=== PATIENT | female | born 1955 | race Caucasian/White ===

== ENCOUNTER 2016-12-01 07:35 | Day surgery (SDC) | payer BC ==
[2016-12-01] MEDS ORDERED: Lactated Ringers 1,000 ML IV SCH (08:00)
[2016-12-01] MEDS ORDERED: fentaNYL 100 MCG/2 ML SDV ONE (08:45)
[2016-12-01] MEDS ORDERED: Midazolam 1 MG/ML 2 ML SDV ONE (08:45)
[2016-12-01] MEDS ORDERED: Propofol 200 MG/20 ML SDV ONE ×2 (08:46→10:26)
[2016-12-01] MEDS ORDERED: Sodium Phosphate,Monobasic/Sodium Phosphate,Dibasic Enema 133 ML Bottle RECTAL SCH (09:20)
[2016-12-01 11:30] VITALS: BP 108/72
--- NOTE | 2016-12-02 08:23 | OR ---
DATE OF PROCEDURE: 12/01/2016 PREOPERATIVE DIAGNOSES: 1. History of colon polyps. 2. History of ovarian cancer. POSTOPERATIVE DIAGNOSES: 1. Unremarkable colonoscopy. 2. History of colon polyps. 3. History of ovarian cancer. PROCEDURE: Colonoscopy to the cecum. SURGEON: Jose French MD. ANESTHESIA: IV anesthesia with monitored anesthesia care. INDICATIONS: This 61-year-old white female is referred for a colonoscopy. She has a history of ovarian cancer and colon polyps. Her last colonoscopic exam was done five years ago. I counseled her for the procedure including risks and alternatives, and she gave her informed consent to proceed. DESCRIPTION OF PROCEDURE: The patient was placed in the left lateral decubitus position. IV anesthesia was administered by the Anesthesia Service. Time-out was held. A rectal exam was performed, which was unremarkable. The flexible video Olympus colonoscope was introduced through her anus, up her rectum, and out her colon all the way to the cecum. Once the cecum was reached, the scope was slowly withdrawn examining the mucosa throughout. No mucosal abnormalities were noted except for a linear scar which has been noted in the past in the area of the splenic flexure. The scope was retroflexed in the rectum with the distal rectum appearing unremarkable. The scope was straightened and removed. She tolerated the procedure well. Jose French MD /[id number]
== END 2016-12-01 11:54 | disposition home or self-care (01) ==
LOC: JP.SDS 07:35
PROVIDERS: ATTEND Surgery
DX: Z12.11 Encounter for screening for malignant neoplasm of colon (principal); Z86.010 Personal history of colon polyps; Z85.43 Personal history of malignant neoplasm of ovary; Z88.1 Allergy status to other antibiotic agents; Z88.2 Allergy status to sulfonamides; Z88.8 Allergy status to other drugs, medicaments and biological substances
CPT/HCPCS: 45378; J2250; J2704; J3010; J7120

== ENCOUNTER 2021-12-17 05:51 | Day surgery (SDC) | payer MEDICARE, BC ==
[2021-12-17] MEDS ORDERED: Lactated Ringers 1,000 ML IV SCH (07:00)
[2021-12-17] MEDS ORDERED: Propofol 200 MG/20 ML SDV ONE (07:08)
[2021-12-17] MEDS ORDERED: fentaNYL 100 MCG/2 ML SDV ONE (07:08)
[2021-12-17] MEDS ORDERED: Midazolam 1 MG/ML 2 ML SDV ONE (07:08)
[2021-12-17 08:47] VITALS: BP 114/72; PULSE 50
== END 2021-12-17 09:12 | disposition home or self-care (01) ==
LOC: JP.SDS 05:51
PROVIDERS: ATTEND Family Medicine
DX: Z12.11 Encounter for screening for malignant neoplasm of colon (principal); D12.3 Benign neoplasm of transverse colon; D12.2 Benign neoplasm of ascending colon; J45.909 Unspecified asthma, uncomplicated; Z86.010 Personal history of colon polyps; Z85.43 Personal history of malignant neoplasm of ovary; Z98.890 Other specified postprocedural states; Z88.5 Allergy status to narcotic agent; Z88.1 Allergy status to other antibiotic agents
CPT/HCPCS: 45380; J2250; J2704; J3010; J7120